=== PATIENT | female | born 1980 | race Hispanic/Latino ===

== ENCOUNTER → 2024-05-08 | Outpatient (CLI) | payer BC | END | disposition home or self-care (01) | LOC: SHCH 09:53 | PROVIDERS: ATTEND Student in an Organized Health Care Education/Training Program | DX: R07.9 Chest pain, unspecified (principal) | CPT/HCPCS: 93306 ==

== ENCOUNTER → 2024-05-10 | Outpatient (CLI) | payer BC ==
[~2024-05-10] MED LIST: IOHEXOL 350 MG/ML 100ML INFUS..BTL IV ONE
== END | disposition home or self-care (01) ==
LOC: RAH 10:46
PROVIDERS: ATTEND Student in an Organized Health Care Education/Training Program
DX: R07.9 Chest pain, unspecified (principal)
CPT/HCPCS: 75574; Q9967

== ENCOUNTER → 2025-03-30 | Outpatient (CLI) | payer BC ==
--- NOTE | 2025-03-31 09:37 | HMCIMG ---
EXAM: MR Cervical Spine Without Intravenous Contrast. CLINICAL HISTORY: Radiculopathy. TECHNIQUE: Magnetic resonance images of the cervical spine in multiple planes. CONTRAST: None. COMPARISON: None. FINDINGS: The imaged posterior fossa is unremarkable. The craniocervical junction is intact. No acute fracture. Loss of the normal cervical lordosis. Normal vertebral body and disc heights. Normal marrow signal of the vertebrae. The cervical cord is in an anatomic location. No abnormal signal involves the cord. No extra-axial masses. The surrounding soft tissues are unremarkable. Level by level, disease is present as follows: C1-C2: No osteoarthritis. C2-C3: No disc bulge or herniation. No neural foraminal, lateral recess, or spinal canal stenosis. C3-C4: No disc bulge or herniation. No neural foraminal, lateral recess, or spinal canal stenosis. C4-C5: No disc bulge or herniation. No neural foraminal, lateral recess, or spinal canal stenosis. C5-C6: No disc bulge or herniation. No neural foraminal, lateral recess, or spinal canal stenosis. C6-C7: No disc bulge or herniation. No neural foraminal, lateral recess, or spinal canal stenosis. C7-T1: No disc bulge or herniation. No neural foraminal, lateral recess, or spinal canal stenosis. IMPRESSION: 1. No acute pathology identified. Normal marrow signal intensity. No acute fracture or subluxation. 2. Loss of the normal cervical lordosis could be secondary to muscular spasm. 3. No disc bulge or herniation. No neural foraminal, lateral recess, or spinal canal stenosis. /[place]
== END | disposition home or self-care (01) ==
LOC: RAH 15:10
PROVIDERS: ATTEND Nurse Practitioner Family
DX: M50.10 Cervical disc disorder with radiculopathy, unspecified cervical region (principal)
CPT/HCPCS: 72141

== ENCOUNTER → 2025-06-20 | Outpatient (CLI) | payer BC ==
--- NOTE | 2025-06-20 21:28 | HMCIMG ---
STUDY: X-RAY OF THE RIGHT SHOULDER, 2 VIEWS HISTORY: Right shoulder pain. TECHNIQUE: AP internal rotation and AP external rotation views of the right shoulder are submitted for interpretation. COMPARISON: None provided. FINDINGS: Bones and joints: The humeral head, glenoid, scapula, and visualized clavicle are intact without acute fracture, dislocation, or subluxation. Glenohumeral and acromioclavicular joint spaces are preserved. No periarticular erosions, osteophytes, or cortical irregularity are identified. Soft tissues: Visualized soft tissues are unremarkable. No abnormal soft tissue calcification, mass, or radiopaque foreign body is seen. IMPRESSION: * Normal radiographic appearance of the right shoulder without acute osseous abnormality or arthritic change. * No additional imaging is required on the basis of these radiographs; if pain persists, worsens, or there is clinical concern for rotator cuff or labral pathology, targeted MRI of the shoulder may be considered. /[place]
--- NOTE | 2025-06-21 05:33 | HMCIMG ---
EXAM: CR Lumbar Spine, 3 views. CLINICAL HISTORY: Pain. COMPARISON: None provided. FINDINGS: Scoliosis of lumbar spine is noted. Osteophytic lipping of articular margin is noted. L3-L4 and L5-S1 intervertebral disc spaces are reduced. Normal vertebral body heights. No acute fracture. Soft tissues are within normal limits. IMPRESSION: No acute bony changes. Scoliosis of lumbar spine is noted. Osteophytic lipping of articular margin is noted. L3-L4 and L5-S1 intervertebral disc spaces are reduced. /[place]
== END | disposition home or self-care (01) ==
LOC: RAH 14:44
PROVIDERS: ATTEND Anesthesiology
DX: M41.86 Other forms of scoliosis, lumbar region (principal); M25.511 Pain in right shoulder; M48.062 Spinal stenosis, lumbar region with neurogenic claudication; M25.78 Osteophyte, vertebrae; M51.379 Other intervertebral disc degeneration, lumbosacral region without mention of lumbar back pain or lower extremity pain
CPT/HCPCS: 72114; 73030